=== PATIENT | female | born 1985 | race Native Hawaiian/Other Pacific Islander ===

== ENCOUNTER 2017-08-05 01:28 | Emergency (ER) | payer OTHER ==
[~2017-08-05] VITALS: Ht 167.6 cm; Wt 72.6 kg
[2017-08-05 01:56] LABS: PLATELET COUNT 271 K/uL (152-353)
[2017-08-05 03:15] VITALS: BP 136/76; TEMP 97.3
== END 2017-08-05 03:15 | disposition home or self-care (01) ==
LOC: ED 01:28
DX: N20.1 Calculus of ureter (principal)
CPT/HCPCS: 36415; 81000; 85027; 96365; 96374; 99284; J1885

== ENCOUNTER 2018-04-01 12:05 | Outpatient (CLI) | payer OTHER | END 2018-04-01 22:24 | disposition home or self-care (01) | LOC: CT 12:05 | DX: R31.9 Hematuria, unspecified (principal) ==

== ENCOUNTER 2018-07-01 09:22 | Outpatient (CLI) | payer OTHER | END 2018-07-01 23:09 | disposition home or self-care (01) | LOC: MRI 09:22 | DX: M54.16 Radiculopathy, lumbar region (principal) ==

== ENCOUNTER 2018-09-06 13:35 | Outpatient (CLI) | payer OTHER | END 2018-09-06 22:51 | disposition home or self-care (01) | LOC: MRI 13:35 | DX: M47.812 Spondylosis without myelopathy or radiculopathy, cervical region (principal) ==

== ENCOUNTER 2019-03-15 10:05 | Day surgery (SDC) | payer OTHER ==
[~2019-03-15] VITALS: Ht 167.6 cm; Wt 77.1 kg
== END 2019-03-15 11:28 | disposition home or self-care (01) ==
LOC: OR 10:05
PROC: 3E0R33Z Introduction of Anti-inflammatory into Spinal Canal, Percutaneous Approach (ICD-10-PCS; principal; 2019-03-15)
PROC: B01BYZZ Fluoroscopy of Spinal Cord using Other Contrast (ICD-10-PCS; 2019-03-15)
DX: M50.123 Cervical disc disorder at C6-C7 level with radiculopathy (principal)
CPT/HCPCS: J1020

== ENCOUNTER 2019-04-12 08:29 | Day surgery (SDC) | payer OTHER ==
[~2019-04-12] VITALS: Ht 167.6 cm; Wt 78.5 kg
== END 2019-04-12 10:16 | disposition home or self-care (01) ==
LOC: OR 08:29
PROC: 3E0R33Z Introduction of Anti-inflammatory into Spinal Canal, Percutaneous Approach (ICD-10-PCS; principal; 2019-04-12)
PROC: B01BYZZ Fluoroscopy of Spinal Cord using Other Contrast (ICD-10-PCS; 2019-04-12)
DX: M50.123 Cervical disc disorder at C6-C7 level with radiculopathy (principal)
CPT/HCPCS: J1020

== ENCOUNTER 2019-11-23 12:40 | Outpatient (CLI) | payer OTHER | END 2019-11-23 19:08 | disposition home or self-care (01) | LOC: EMG 12:40 | DX: M50.10 Cervical disc disorder with radiculopathy, unspecified cervical region (principal) | CPT/HCPCS: 95861; 95912 ==